=== PATIENT | male | born 1950 | race Asian ===

== ENCOUNTER 2019-07-14 18:52 | Inpatient (IN) | payer OTHER ==
[~2019-07-14] VITALS: Ht 160 cm; Wt 66.7 kg
[2019-07-14 19:00] VITALS: BP_SYST 126
[2019-07-14] MEDS ORDERED: KETOROLAC TROMETHAMINE 30 MG VIAL IM ONE (19:15)
[2019-07-14 19:30] LABS: BASOPHILS % (AUTO) 0.5 % (0.0-2.0); EOSINOPHILS # (AUTO) 0.2 K/uL (0.0-0.4); HEMATOCRIT 52.9 % (36-54); HEMOGLOBIN 17.5 g/dL (14.0-18.0); LYMPHOCYTES # (AUTO) 0.8 K/uL (1.0-5.5); LYMPHOCYTES % (AUTO) 10.6 % (20.5-51.5); MEAN CORPUSCULAR HEMOGLOBIN 30 pg (27-31); MEAN CORPUSCULAR HGB CONC 33 % (32-36); MEAN CORPUSCULAR VOLUME 89 fL (79.0-98.0); MONOCYTES # (AUTO) 0.8 K/uL (0.0-1.0); MONOCYTES % (AUTO) 10.1 % (1.7-9.3); NEUTROPHILS # (AUTO) 5.8 K/uL (1.8-7.7); NEUTROPHILS % (AUTO) 75.8 % (40.0-70.0); PLATELET COUNT (AUTO) 156 K/uL (130-430); RED BLOOD CELL COUNT(AUTO) 5.94 MIL/uL (4.2-6.2); RED CELL DISTRIBUTION WIDTH 16.2 % (9.0-15.0); WHITE BLOOD COUNT (AUTO) 7.7 K/uL (4.8-10.8)
[2019-07-14 19:39] LABS: CALCIUM 9.1 mg/dL (8.4-11.0); CREATININE 1.77 mg/dL (0.55-1.30); POTASSIUM 4.6 mmol/L (3.5-5.1)
[2019-07-14 19:45] LABS: ALBUMIN 3.4 g/dL (3.4-4.8); TOTAL BILIRUBIN 1.9 mg/dL (0.0-1.0)
[2019-07-14 19:52] LABS: INR 1.1 (0.80-1.20); PROTHROMBIN TIME 10.8 SECS (9.5-12.5)
[2019-07-14] MEDS ORDERED: FURO-149 PO (22:08)
[2019-07-14] MEDS ORDERED: COR12.5 PO (22:08)
[2019-07-14] MEDS ORDERED: SPIR25TA6 PO (22:08)
[2019-07-15] MEDS ORDERED: HEPARIN 25,000 UNITS/D5W 250ML 250 ML IV PRN ×2
[2019-07-15 01:05] VITALS: BP_SYST 135
[2019-07-15] MEDS ORDERED: HEPARIN SODIUM,PORCINE 2000 UNITS/0.4 ML BOLUS IVP PRN (03:00)
[2019-07-15] MEDS ORDERED: HEPARIN SODIUM,PORCINE 3000 UNITS/0.6 ML BOLUS IVP PRN (03:00)
[2019-07-15] MEDS: HEPARIN 25,000 UNITS in 250 ML PREMIX IV PRN ×3 (03:48→17:16)
[2019-07-15 08:00] VITALS: BP_SYST 121
[2019-07-15] MEDS ORDERED: MORPHINE 2 MG/ML INJ. SYRINGE IVP PRN (10:15)
[2019-07-15] MEDS ORDERED: SPIRONOLACTONE 25 MG TABLET (ALDACTONE) PO ONE (10:30)
[2019-07-15] MEDS ORDERED: MORPHINE 2 MG/ML INJ. SYRINGE ONE (10:30)
[2019-07-15] MEDS ORDERED: FUROSEMIDE 40 MG TABLET PO ONE (10:30)
[2019-07-15] MEDS ORDERED: CARVEDILOL 12.5 MG TABLET (COREG) PO ONE (10:30)
[2019-07-15 14:12] VITALS: BP_SYST 98
[2019-07-15 17:28] VITALS: BP_SYST 111
[2019-07-15 20:00] VITALS: BP_SYST 116
[2019-07-15] MEDS: CARVEDILOL 12.5 MG TABLET (COREG) PO SCH (21:00)
[2019-07-15] MEDS: FUROSEMIDE 40 MG TABLET PO SCH (21:15)
[2019-07-15] MEDS: SPIRONOLACTONE 25 MG TABLET (ALDACTONE) PO SCH (21:16)
[2019-07-16 01:22] VITALS: BP_SYST 123
[2019-07-16] MEDS: HEPARIN 25,000 UNITS in 250 ML PREMIX IV PRN (02:25)
[2019-07-16 07:52] VITALS: BP_SYST 110
[2019-07-16 07:54] LABS: BASOPHILS % (AUTO) 0.4 % (0.0-2.0); EOSINOPHILS % (AUTO) 0.5 % (0.0-4.0); HEMATOCRIT 51.1 % (36-54); LYMPHOCYTES # (AUTO) 0.8 K/uL (1.0-5.5); LYMPHOCYTES % (AUTO) 9.3 % (20.5-51.5); MEAN CORPUSCULAR HEMOGLOBIN 29 pg (27-31); MEAN CORPUSCULAR HGB CONC 33 % (32-36); MEAN CORPUSCULAR VOLUME 88 fL (79.0-98.0); MONOCYTES # (AUTO) 0.9 K/uL (0.0-1.0); MONOCYTES % (AUTO) 10.1 % (1.7-9.3); NEUTROPHILS # (AUTO) 7.3 K/uL (1.8-7.7); NEUTROPHILS % (AUTO) 79.7 % (40.0-70.0); PLATELET COUNT (AUTO) 151 K/uL (130-430); RED BLOOD CELL COUNT(AUTO) 5.79 MIL/uL (4.2-6.2); RED CELL DISTRIBUTION WIDTH 15.9 % (9.0-15.0); WHITE BLOOD COUNT (AUTO) 9.1 K/uL (4.8-10.8)
[2019-07-16 08:32] LABS: ALBUMIN 2.7 g/dL (3.4-4.8); CALCIUM 8.4 mg/dL (8.4-11.0); CREATININE 1.59 mg/dL (0.55-1.30); POTASSIUM 4.3 mmol/L (3.5-5.1); THYROID STIMULATING HORMONE 0.82 uIu/mL (0.36-3.74); TOTAL BILIRUBIN 2.1 mg/dL (0.0-1.0)
[2019-07-16] MEDS: CARVEDILOL 12.5 MG TABLET (COREG) PO SCH (09:00)
[2019-07-16] MEDS: SPIRONOLACTONE 25 MG TABLET (ALDACTONE) PO SCH (09:06)
[2019-07-16] MEDS: FUROSEMIDE 40 MG TABLET PO SCH (09:07)
[2019-07-16] MEDS ORDERED: FURO-149 PO (10:34)
[2019-07-16] MEDS ORDERED: SPIR25TA PO (10:34)
[2019-07-16] MEDS ORDERED: ASPIRIN 81 MG TAB.CHEW PO ONE (11:30)
[2019-07-16 12:00] VITALS: BP_SYST 118
[2019-07-16 13:59] VITALS: BP_SYST 115
[2019-07-17] MEDS ORDERED: ASPIRIN 81 MG TAB.CHEW PO SCH (09:00)
== END 2019-07-16 14:30 | disposition home or self-care (01) | DRG 291 ==
LOC: SED 18:52 → STU 23:30
PROVIDERS: ADMIT Internal Medicine Hospice and Palliative Medicine; ATTEND Internal Medicine Hospice and Palliative Medicine
DX: I13.0 Hypertensive heart and chronic kidney disease with heart failure and stage 1 through stage 4 chronic kidney disease, or unspecified chronic kidney disease (principal); I50.43 Acute on chronic combined systolic (congestive) and diastolic (congestive) heart failure; F10.10 Alcohol abuse, uncomplicated; F15.10 Other stimulant abuse, uncomplicated; I42.0 Dilated cardiomyopathy; I42.6 Alcoholic cardiomyopathy; J44.9 Chronic obstructive pulmonary disease, unspecified; N18.9 Chronic kidney disease, unspecified; Z79.899 Other long term (current) drug therapy; Z87.891 Personal history of nicotine dependence
CPT/HCPCS: 36415; 71045; 80053; 80061; 82550-TC; 83880; 84443-TC; 84484; 85025; 85379; 85610-TC; 85730-TC; 87081; 93005; 93306; 96372; 99285; G0378; J1644; J1885; J2270